=== PATIENT | female | born 1980 | race Caucasian/White ===

== ENCOUNTER 2016-06-15 13:12 | Emergency (ER) | payer MEDICAID ==
[2016-06-15 14:01] VITALS: BP 112/64; PULSE 64; RESP 16; TEMP 98.6; O2SAT 96
--- NOTE | 2016-06-15 14:21 | UCPHY ---
H & P Time Seen by Provider: 06/15/16 13:50 Patient Type: Established HPI/ROS: This patient reports a 4 day history of coughing, fevers and feeling of chest congestion. She does not feel she is improving. 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 She notes no exacerbating or alleviating factors except smoking cigarettes makes her symptoms worsened. ROS: No high fevers or chills. She reports no HEENT complaints other than mild nasal congestion. Pulmonary: No pleuritic pain or respiratory distress. No hemoptysis. Cardiovascular: No lower extremity swelling or calf pain. GI: No vomiting. 7 point ROS is otherwise negative. 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 General: No acute distress HEENT: Nose: Clear discharge bilaterally. No sinus tenderness to percussion. Ears: External canals and tympanic membranes are clear with no erythema or abnormal findings bilaterally. Oropharynx: No erythema or exudates. No dysphonia. No drooling or stridor. Eyes: Pupils equal and react to light. Extraocular motions are intact. Lungs: Mild expiratory wheeze bilaterally. Minimal rhonchi. No rales. Cardiac: Regular rate and rhythm with no murmur gallop or rub Skin: No rash or pallor. Neuro: Alert with no focal deficits noted. Initial differential diagnosis: Influenza, viral bronchitis, bacterial bronchitis Constitutional: Initial Vital Signs Temperature (C) 37.0 C 06/15/16 13:50 Heart Rate 64 06/15/16 13:50 Respiratory Rate 16 06/15/16 13:50 Blood Pressure 112/64 06/15/16 13:50 O2 Sat (%) 96 06/15/16 13:50 O2 Delivery Mode Room Air Allergies/Adverse Reactions: codeine Allergy (Verified 06/15/16 13:58) Home Medications: Medication Instructions Recorded Albuterol Hfa Anes Only [Proair 2 puffs IH Q4 PRN #1 mdi 06/15/16 Hfa Icu (*)] Azithromycin [Zithromax] 250 mg PO DAILY #6 tab 06/15/16 MDM/Departure - MDM Diagnostics: Rapid flu is negative ED Course/Re-evaluation: Given the patient's status is a smoker will cover her with Zithromax for her bronchitis Differential Diagnosis: I encouraged her to quit smoking - Depart Disposition: Home, Routine, Self-Care Clinical Impression: Acute bronchitis Qualifiers: Bronchitis organism: unspecified organism Qualified Code(s): J20.9 - Acute bronchitis, unspecified Condition: Good Instructions: How to Stop Smoking (ED), Acute Bronchitis (ED) Additional Instructions: Diagnosis: Acute bronchitis Plan: Humidifier Albuterol inhaler with spacer Quit smoking Zithromax antibiotic Quit smoking F/u with primary care physician for any ongoing symptoms despite the treatment plan Go to the emergency department for any significant worsening despite treatment plan Stand Alone Forms: Work Excuse Prescriptions: Albuterol Hfa Anes Only [Proair Hfa Icu (*)] 2 puffs IH Q4 PRN #1 mdi PRN Reason: Wheezing Azithromycin [Zithromax] 250 mg PO DAILY #6 tab Referrals: NONE *PRIMARY CARE P,. [Primary Care Provider] - As per Instructions - PQRS PQRS Measurement: NA
== END 2016-06-15 14:47 | disposition home or self-care (01) ==
LOC: CED 13:12
DX: J20.9 Acute bronchitis, unspecified (principal); F17.200 Nicotine dependence, unspecified, uncomplicated
CPT/HCPCS: 87400-PO; G0463-PO